=== PATIENT | male | born 1965 | race Caucasian/White ===

== ENCOUNTER 2022-04-08 13:47 | Outpatient (CLI) | payer OTHER, SELFPAY ==
--- NOTE | ~2022-04-08 | XR_ITS ---
XR lumbar spine min 4V 04/08/2022 14:17 Indication: Low back pain Procedure: 5 views lumbar spine Comparison: No prior studies for comparison. Findings: Vertebral body heights are maintained. No fracture, subluxation or dislocation. No evidence for spondylolisthesis. There is facet hypertrophy at L5-S1. No evidence for spondylolisthesis. Pedic les intact. There is atherosclerosis of the aorta. A levocurvature of the lumbar spine. Impression: 1: Mild lumbar spondylosis. Reviewed, dictated and finalized at location A. Impression: 1: Mild lumbar spondylosis.
--- NOTE | ~2022-04-08 | XR_ITS ---
XR sacroiliac joints min 3V DATE: 04/08/2022 14:17 INDICATION: Arthropathic psoriasis TECHNIQUE: AP and bilateral oblique views COMPARISON: None FINDINGS: Lumbar levoscoliosis. The sacroiliac joints are intact without evidence of erosive change, ankylosis, fracture, dislocation or degenerative change. Surgical clips overlie the lower pelvis. IMPRESSION: Normal sacroiliac joints Reviewed, dictated and finalized at Location A. Reviewed, dictated and finalized at location A. IMPRESSION: Normal sacroiliac joints
[2022-04-08 16:07] LABS: Hepatitis B Surface Antigen Negative (Negative)
[2022-04-08 16:24] LABS: Hepatitis B Surface Anti Res Negative; Hepatitis C Virus Antibody Negative (Negative)
[2022-04-08 21:58] LABS: Rheumatoid Factor < 8.6 IU/ML (<12)
[2022-04-10 12:56] LABS: NIL 0.02 IU/mL; Quantiferon TB Plus, 1T POSITIVE (NEGATIVE); TB1-NIL 0.33 IU/mL; TB2-NIL 0.41 IU/mL
[2022-04-10 22:21] LABS: Anti Cyclic Citrullinated Pept <16 Units (<20)
[2022-04-14 14:02] LABS: Anti Nuclear Antibody Titer 1:40 (Negative)
== END 2022-04-08 13:48 | disposition home or self-care (01) ==
PROVIDERS: PCP Internal Medicine; Visit Provider Internal Medicine
DX: G56.03 Carpal tunnel syndrome, bilateral upper limbs (principal); M19.90 Unspecified osteoarthritis, unspecified site; Z71.89 Other specified counseling; Z79.899 Other long term (current) drug therapy; Z11.59 Encounter for screening for other viral diseases; L40.50 Arthropathic psoriasis, unspecified; M47.816 Spondylosis without myelopathy or radiculopathy, lumbar region
CPT/HCPCS: 36415; 72110; 72202; 86038; 86039; 86200; 86430; 86480; 86706; 86803; 87340

== ENCOUNTER 2022-05-13 09:29 | Outpatient (CLI) | payer OTHER, SELFPAY ==
--- NOTE | ~2022-05-13 | XR_ITS ---
EXAMINATION: XR chest 2V 05/13/2022 10:05 INDICATION: Psoriatic arthritis. PROCEDURE: 2 view chest COMPARISON: No prior studies for comparison. FINDINGS: The lungs are clear. The cardiomediastinal silhouette is within normal limits. There are no pleural effusions. There is no pneumothorax suspected. IMPRESSION: 1: NO ACUTE CARDIOPULMONARY DISEASE. Reviewed, dictated and finalized at location B.
[2022-05-13 10:38] LABS: Complement C3 157 mg/dL (88-165)
[2022-05-17 05:09] LABS: Lupus dRVVT 1:1 Mix Interpreta Not Indicated; Lupus dRVVT Screen 35 sec (<=45); PTT-LA Screen 33 sec (<=40)
[2022-05-19 07:55] LABS: SM Antibody <1.0; SM/RNP Antibody <1.0; SS-A <1.0; SS-B <1.0
== END 2022-05-13 09:30 | disposition home or self-care (01) ==
PROVIDERS: PCP Internal Medicine; Visit Provider Internal Medicine
DX: L40.50 Arthropathic psoriasis, unspecified (principal); R76.12 Nonspecific reaction to cell mediated immunity measurement of gamma interferon antigen response without active tuberculosis; R76.8 Other specified abnormal immunological findings in serum
CPT/HCPCS: 36415; 71046; 85613; 85730; 86160; 86225; 86235